=== PATIENT | male | born 1975 | race African-American/Black ===

== ENCOUNTER 2016-10-11 19:20 | Emergency (ER) | payer OTHER ==
[~2016-10-11 19:20] MED LIST: NORVASC10 MG PO
[2016-10-11] MEDS ORDERED: PERCOCET 5/321 UDTAB PO (19:34)
== END 2016-10-11 20:43 | disposition home or self-care (01) ==
LOC: SED 19:20
DX: J02.9 Acute pharyngitis, unspecified (principal); I10 Essential (primary) hypertension
CPT/HCPCS: 87651; 99283

== ENCOUNTER 2016-11-17 19:18 | Emergency (ER) | payer OTHER ==
[~2016-11-17] VITALS: Ht 180.3 cm; Wt 179.2 kg
[~2016-11-17 19:18] MED LIST changes: +PERCOCET 5/321 UDTAB PO
== END 2016-11-17 20:48 | disposition home or self-care (01) ==
LOC: SED 19:18
DX: J02.9 Acute pharyngitis, unspecified (principal); I10 Essential (primary) hypertension; Z79.899 Other long term (current) drug therapy; Z79.891 Long term (current) use of opiate analgesic
CPT/HCPCS: 87651; 99283